=== PATIENT | female | born 1930 | race Caucasian/White ===

== ENCOUNTER → 2016-07-06 | Outpatient (CLI) | payer MEDICARE, BC ==
[~2016-07-06] MED LIST: CARDIZEM CD120 MG PO; ENSURE LIQUID237 ML PO; ENSURE ORIGINA237 ML PO; FUROSEMIDE20 MG PO; IPRAT-ALBUT 0.5-3 ML INH; KLOR-CON 1010 MEQ PO; LASIX TAB 20 MG20 MG PO; MEDROL DOSEPAK 24 MG PO; MEDROL4 MG PO; NORCO 5-325 TA1 EACH PO; PROAIR HFA8.5 GM INH; PROTONIX 40 MG40 M1 PO; PROVENTIL HFA 61 INH INH; SPIRIVA18 MCG INH; SYMBICORT 16010.2 GM INH; TUMS/TITRALAC500 MG PO; VENTOLIN/PROVE0.5 ML NEB; VITAMIN B-121000 MCG PO; ZITHROMAX500 MG PO
== END ==
LOC: CT 08:00
DX: R10.31 Right lower quadrant pain (principal); R91.8 Other nonspecific abnormal finding of lung field; R93.5 Abnormal findings on diagnostic imaging of other abdominal regions, including retroperitoneum
CPT/HCPCS: J7050; Q9962

== ENCOUNTER 2016-09-19 16:16 | Inpatient (IN) | payer MEDICARE, BC ==
[~2016-09-19] VITALS: Ht 160 cm; Wt 67.3 kg
[~2016-09-19 16:16] MED LIST changes: -FUROSEMIDE20 MG PO; -MEDROL4 MG PO; -VENTOLIN/PROVE0.5 ML NEB; -VITAMIN B-121000 MCG PO
[2016-09-19 17:19] LABS: HEMOGLOBIN 13.7 gm/dl (12.3-15.3); RED BLOOD COUNT 4.61 M/UL (4.00-5.10); WHITE BLOOD COUNT 9.4 K/UL (4.5-11.0)
[2016-09-19 17:38] LABS: BUN/CREATININE RATIO 20 (0-10)
[2016-09-19] MEDS ORDERED: VENTOLIN/PROVE0.5 ML NEB (23:08)
[2016-09-19] MEDS ORDERED: SPIRIVA18 MCG INH (23:08)
[2016-09-19] MEDS ORDERED: FUROSEMIDE20 MG PO (23:09)
[2016-09-19] MEDS ORDERED: SYMBICORT 16010.2 GM INH (23:09)
[2016-09-19] MEDS ORDERED: VITAMIN B-121000 MCG PO (23:10)
[2016-09-20 03:42] LABS: HEMOGLOBIN 12.9 gm/dl (12.3-15.3); RED BLOOD COUNT 4.35 M/UL (4.00-5.10); WHITE BLOOD COUNT 7.3 K/UL (4.5-11.0)
[2016-09-20 04:10] LABS: BUN/CREATININE RATIO 33 (0-10)
[2016-09-23] MEDS ORDERED: MEDROL4 MG PO (10:51)
== END 2016-09-23 11:19 | disposition home or self-care (01) | DRG 191 ==
LOC: ER1 16:16 → MED SURG 4 20:45 → ZEROF 20:45 → MED SURG 4 21:50
PROVIDERS: Preventive Medicine Occupational Medicine; ADMIT Internal Medicine
DX: J44.1 Chronic obstructive pulmonary disease with (acute) exacerbation (principal); J98.11 Atelectasis; F17.210 Nicotine dependence, cigarettes, uncomplicated; L57.0 Actinic keratosis; L82.1 Other seborrheic keratosis; G47.00 Insomnia, unspecified
CPT/HCPCS: 36415; 36600; 71020; 80048; 80053; 82550; 82553; 82803; 83880; 84484; 85025; 87040; 87070; 87205; 93005; 94640; 94664; 96365; 96375; 99285; J0696; J1650; J1652; J1940; J1956; J2405; J2920; J2930; J7030; J7050

== ENCOUNTER 2020-05-07 16:46 | Inpatient (IN) | payer MEDICARE, BC ==
[~2020-05-07] VITALS: Ht 160 cm; Wt 61.2 kg
[~2020-05-07 16:46] MED LIST changes: +AFINITOR5 MG PO; +ALDACTONE 25MG25 MG PO; +ALPRAZOLAM0.5 MG PO; +AMOX TR-K CLV1 EAC4 PO; +AROMASIN25 MG PO; +ASPIRIN EC81 MG PO; +AZITHROMYCIN250 MG PO; +BROVANA15 MCG/2 M INH; +CALCIUM500 MG PO; +COLACE100 MG PO; +COZAAR25 MG PO; +CYMBALTA30 MG PO; +DIAMOX 250 MG250 MG PO; +DILTIAZEM 24HR120 M1 PO; +DILTIAZEM 24HR240 M1 PO; +DOK PLUS TABLE1 EACH PO; +DULCOLAX10 MG PR; +DULERA 100 MCG8.8 GM INH; +ELIQUIS 5 MG TAB5 MG PO; +FERROUS SULFAT325 M2 PO; +FERROUS SULFAT325 MG PO; +FUROSEMIDE20 MG PO; +IBRANCE100 MG PO; +IBUPROFEN400 MG PO; +IMDUR ER TAB 3030 MG PO; +IPRAT-ALBUT 0.5-3 ML NEB; +IRON 100 PLUS1 EACH PO; +K-DUR TAB 10 M10 MEQ PO; +LASIX20 MG PO; +LASIX40 MG PO; +LISINOPRIL10 MG PO; +LOTRIMIN CREAM15 GM TOP; +MAPAP325 MG PO; +MEDROL4 MG PO; +MELATONIN5 MG PO; +OMNICEF 300 MG300 MG PO; +PREDNISONE 5 MG5 MG PO; +PREDNISONE10 MG PO; +PREDNISONE20 MG PO; +PULMICORT0.5 MG/21 INH; +SPIRIVA HANDIH18 MCG INH; +SPIRIVA RESPIMAT4 GM INH; +SYMBICORT 160-1 INHA INH; +THERAGRAN M TAB1 EA PO; +TOPROL XL25 MG PO; +TYLENOL PM EX-1 EACH PO; +VENTOLIN/PROVE0.5 ML NEB; +VIBRAMYCIN100 MG PO; +VITAMIN B-121000 MCG PO; +XARELTO10 MG PO; +ZESTRIL2.5 MG PO; +ZITHROMAX250 MG PO
[2020-05-07 17:17] LABS: HEMOGLOBIN 8.8 gm/dl (12.3-15.3); RED BLOOD COUNT 3.64 M/UL (4.00-5.10)
[2020-05-07 17:42] LABS: BUN/CREATININE RATIO 23 (0-10)
[2020-05-08 07:46] LABS: HEMOGLOBIN 7.9 gm/dl (12.3-15.3); RED BLOOD COUNT 3.29 M/UL (4.00-5.10); WHITE BLOOD COUNT 10.4 K/UL (4.5-11.0)
[2020-05-09 06:09] LABS: HEMOGLOBIN 8.2 gm/dl (12.3-15.3); RED BLOOD COUNT 3.21 M/UL (4.00-5.10); WHITE BLOOD COUNT 8.5 K/UL (4.5-11.0)
[2020-05-09 07:32] LABS: BUN/CREATININE RATIO 22 (0-10)
[2020-05-09] MEDS ORDERED: IPRAT-ALBUT 0.5-3 ML INH (18:19)
[2020-05-09] MEDS ORDERED: TOPROL XL 25 MG25 MG PO (18:21)
[2020-05-09] MEDS ORDERED: HYDROCODON-ACE1 EAC2 PO (20:07)
[2020-05-10 04:10] LABS: HEMOGLOBIN 7.4 gm/dl (12.3-15.3); RED BLOOD COUNT 3.09 M/UL (4.00-5.10); WHITE BLOOD COUNT 9.3 K/UL (4.5-11.0)
[2020-05-10 04:30] LABS: BUN/CREATININE RATIO 22 (0-10)
--- NOTE | 2020-05-12 01:26 | NUR ---
0030- NO CHANGE FROM PREVIOUS NUSING ASSESSMENT
[2020-05-13 03:45] LABS: HEMOGLOBIN 7.4 gm/dl (12.3-15.3); RED BLOOD COUNT 3.19 M/UL (4.00-5.10); WHITE BLOOD COUNT 8.9 K/UL (4.5-11.0)
[2020-05-13 04:02] LABS: BUN/CREATININE RATIO 23 (0-10)
[2020-05-14 02:19] LABS: HEMOGLOBIN 7.5 gm/dl (12.3-15.3); RED BLOOD COUNT 3.15 M/UL (4.00-5.10); WHITE BLOOD COUNT 7.5 K/UL (4.5-11.0)
[2020-05-14 02:45] LABS: BUN/CREATININE RATIO 25 (0-10)
== END 2020-05-16 13:48 | disposition expired | DRG 291 ==
LOC: ER1 16:46 → PROG CARE 19:37 → M/S 19:37 → CDU 19:37 → M/S 22:40 → PROG CARE 05-13 13:46
PROVIDERS: Emergency Medicine; Internal Medicine; ADMIT Internal Medicine
PROC: 5A09457 Assistance with Respiratory Ventilation, 24-96 Consecutive Hours, Continuous Positive Airway Pressure (ICD-10-PCS; principal; 2020-05-07)
DX: I11.0 Hypertensive heart disease with heart failure (principal); J96.22 Acute and chronic respiratory failure with hypercapnia; J96.21 Acute and chronic respiratory failure with hypoxia; G93.41 Metabolic encephalopathy; J18.9 Pneumonia, unspecified organism; C78.00 Secondary malignant neoplasm of unspecified lung; R44.3 Hallucinations, unspecified; N39.0 Urinary tract infection, site not specified; J93.83 Other pneumothorax; J98.19 Other pulmonary collapse; I50.33 Acute on chronic diastolic (congestive) heart failure; C50.919 Malignant neoplasm of unspecified site of unspecified female breast; J44.9 Chronic obstructive pulmonary disease, unspecified; E78.5 Hyperlipidemia, unspecified; I44.7 Left bundle-branch block, unspecified; H91.90 Unspecified hearing loss, unspecified ear; Z51.5 Encounter for palliative care; Z20.822 Contact with and (suspected) exposure to COVID-19; E87.6 Hypokalemia; I89.0 Lymphedema, not elsewhere classified; D63.0 Anemia in neoplastic disease; I48.0 Paroxysmal atrial fibrillation; B96.1 Klebsiella pneumoniae [K. pneumoniae] as the cause of diseases classified elsewhere; E53.8 Deficiency of other specified B group vitamins; G89.29 Other chronic pain; M54.9 Dorsalgia, unspecified; Z79.899 Other long term (current) drug therapy; Z86.718 Personal history of other venous thrombosis and embolism; Z99.81 Dependence on supplemental oxygen; Z87.891 Personal history of nicotine dependence; Z79.01 Long term (current) use of anticoagulants; Z17.1 Estrogen receptor negative status [ER-]
CPT/HCPCS: 36415; 36600; 71045; 71250; 73060; 73090; 80048; 80053; 81001; 82550; 82553; 82803; 83605; 83735; 83880; 84100; 84132; 84484; 85025; 85027; 85610; 85730; 86140; 87040; 87077; 87086; 87186; 90471; 90715; 93005; 94640; 94660; 94664; 94760; 96374; 96375; 96376; 99285; J0456; J0696; J1120; J1940; J2060; J2270; J3480; J7030; U0002